=== PATIENT | female | born 1980 | race Two or more races ===

== ENCOUNTER 2018-07-09 13:11 | Outpatient (CLI) | payer OTHER ==
[~2018-07-09 13:11] MED LIST: CIPRO500 MG PO; MACROBID 100 M100 MG PO; ORPH100T PO; THERACRAN650 MG PO
== END 2018-07-09 14:58 | disposition home or self-care (01) ==
LOC: NST 13:11
DX: Z34.83 Encounter for supervision of other normal pregnancy, third trimester (principal)

== ENCOUNTER 2018-07-09 13:37 | Inpatient (IN) | payer OTHER ==
[~2018-07-09] VITALS: Ht 152.4 cm; Wt 104.3 kg
[2018-08-08] MEDS ORDERED: PRENATAL TABLE1 EAC1 PO (16:16)
== END 2018-08-11 11:24 | DRG 768 ==
LOC: OB/GYN 08-07 12:02 → LDR 08-08 15:40 → OB/GYN 08-09 19:32
PROC: 10E0XZZ Delivery of Products of Conception, External Approach (ICD-10-PCS; principal; 2018-08-09)
PROC: 0DQR0ZZ Repair Anal Sphincter, Open Approach (ICD-10-PCS; 2018-08-09)
PROC: 0W8NXZZ Division of Female Perineum, External Approach (ICD-10-PCS; 2018-08-09)
PROC: 3E0P7VZ Introduction of Hormone into Female Reproductive, Via Natural or Artificial Opening (ICD-10-PCS; 2018-08-09)
PROC: 3E033VJ Introduction of Other Hormone into Peripheral Vein, Percutaneous Approach (ICD-10-PCS; 2018-08-09)
PROC: 4A1HXCZ Monitoring of Products of Conception, Cardiac Rate, External Approach (ICD-10-PCS; 2018-08-09)
DX: O70.21 Third degree perineal laceration during delivery, IIIa (principal); Z37.0 Single live birth; Z3A.40 40 weeks gestation of pregnancy

== ENCOUNTER 2018-07-30 09:16 | Outpatient (CLI) | payer OTHER | END 2018-07-30 10:03 | disposition home or self-care (01) | LOC: NST 09:16 | DX: Z34.83 Encounter for supervision of other normal pregnancy, third trimester (principal) ==

== ENCOUNTER 2018-08-03 08:27 | Outpatient (CLI) | payer OTHER | END 2018-08-03 09:14 | disposition home or self-care (01) | LOC: NST 08:27 | DX: Z34.83 Encounter for supervision of other normal pregnancy, third trimester (principal) ==

== ENCOUNTER 2018-08-06 08:21 | Outpatient (CLI) | payer OTHER | END 2018-08-06 09:06 | disposition home or self-care (01) | LOC: NST 08:21 | DX: Z34.03 Encounter for supervision of normal first pregnancy, third trimester (principal) ==

== ENCOUNTER 2018-08-07 10:53 | Outpatient (CLI) | payer OTHER ==
[2018-08-08] MEDS ORDERED: PRENATAL TABLE1 EAC1 PO (16:16)
== END 2018-08-07 11:45 | disposition home or self-care (01) ==
LOC: NST 10:53
DX: Z34.83 Encounter for supervision of other normal pregnancy, third trimester (principal)

== ENCOUNTER → 2021-01-05 | Outpatient (CLI) | payer OTHER ==
[~2021-01-05] MED LIST changes: +PRENATAL TABLE1 EAC1 PO
== END | disposition home or self-care (01) ==
LOC: NST 17:03
PROVIDERS: ATTEND Obstetrics & Gynecology
DX: Z34.82 Encounter for supervision of other normal pregnancy, second trimester (principal)

== ENCOUNTER 2021-04-08 09:19 | Outpatient (CLI) | payer OTHER | END 2021-04-08 10:07 | disposition home or self-care (01) | LOC: NST 09:19 | PROVIDERS: ATTEND Obstetrics & Gynecology Maternal & Fetal Medicine | DX: Z34.83 Encounter for supervision of other normal pregnancy, third trimester (principal) ==

== ENCOUNTER 2021-04-08 15:15 | Inpatient (IN) | payer OTHER ==
[~2021-04-08] VITALS: Ht 177.8 cm; Wt 108.9 kg
== END 2021-05-01 11:37 | disposition home or self-care (01) | DRG 807 ==
LOC: LDR 04-29 05:20 → SURG-SUITE 04-29 05:20 → OB/GYN 04-29 15:15 → SURG-SUITE 04-29 15:33
PROVIDERS: ADMIT Obstetrics & Gynecology Maternal & Fetal Medicine; ATTEND Obstetrics & Gynecology Maternal & Fetal Medicine
PROC: 10E0XZZ Delivery of Products of Conception, External Approach (ICD-10-PCS; principal; 2021-04-29)
PROC: 0KQM0ZZ Repair Perineum Muscle, Open Approach (ICD-10-PCS; 2021-04-29)
PROC: 0W8NXZZ Division of Female Perineum, External Approach (ICD-10-PCS; 2021-04-29)
PROC: 10907ZC Drainage of Amniotic Fluid, Therapeutic from Products of Conception, Via Natural or Artificial Opening (ICD-10-PCS; 2021-04-29)
PROC: 3E033VJ Introduction of Other Hormone into Peripheral Vein, Percutaneous Approach (ICD-10-PCS; 2021-04-29)
PROC: 4A1HXFZ Monitoring of Products of Conception, Cardiac Rhythm, External Approach (ICD-10-PCS; 2021-04-29)
DX: O48.0 Post-term pregnancy (principal); Z37.0 Single live birth; O70.1 Second degree perineal laceration during delivery; Z3A.40 40 weeks gestation of pregnancy

== ENCOUNTER 2021-04-22 08:05 | Outpatient (CLI) | payer OTHER | END 2021-04-22 08:30 | disposition home or self-care (01) | LOC: NST 08:05 | PROVIDERS: ATTEND Obstetrics & Gynecology Maternal & Fetal Medicine | DX: Z34.83 Encounter for supervision of other normal pregnancy, third trimester (principal) ==

== ENCOUNTER 2021-04-27 09:20 | Outpatient (CLI) | payer OTHER | END 2021-04-27 09:39 | disposition home or self-care (01) | LOC: NST 09:20 | PROVIDERS: ATTEND Obstetrics & Gynecology Maternal & Fetal Medicine | DX: Z34.83 Encounter for supervision of other normal pregnancy, third trimester (principal) ==